=== PATIENT | female | born 1945 | race Caucasian/White ===

== ENCOUNTER 2022-07-28 14:15 | Outpatient (CLI) | payer MEDICARE, SELFPAY ==
[2022-07-28 14:33] LABS: Chloride* 102 mmol/L (96-114)
[2022-07-28 14:34] LABS: Albumin* 4.3 g/dL (3.3-5.0)
[2022-07-28 14:35] LABS: Potassium* 4.1 mmol/L (3.6-5.1); Sodium* 137 mmol/L (135-149)
[2022-07-28 14:37] LABS: Alkaline Phosphatase* 93 U/L (40-150); Aspartate Amino Transferase* 31 U/L (12-35); Bilirubin Total* 1.2 mg/dL (0.1-1.5); Blood Urea Nitrogen* 28 mg/dL (7-30); Carbon Dioxide* 21 mmol/L (20-32); Cholesterol* 140 mg/dL (90-199); Estimated Glomerular Filt Rate 58 ml/min; Total Protein* 7.8 g/dL (6.0-8.3)
[2022-07-28 14:38] LABS: Alanine Aminotransferase* 23 U/L (4-35); Calcium* 9.6 mg/dL (8.4-10.6); Glucose* 109 mg/dL (60-115); HDL Cholesterol* 37 mg/dL (>=50); LDL Cholesterol Calculated 81 mg/dL (<100); Triglycerides* 110 mg/dL (40-149)
== END 2022-07-28 14:16 | disposition home or self-care (01) ==
PROVIDERS: PCP Physician Assistant Medical; Visit Provider Physician Assistant Medical
DX: Z00.00 Encounter for general adult medical examination without abnormal findings (principal); I10 Essential (primary) hypertension; Z13.6 Encounter for screening for cardiovascular disorders; Z13.29 Encounter for screening for other suspected endocrine disorder
CPT/HCPCS: 80053; 80061; 84443

== ENCOUNTER 2023-06-24 14:09 | Outpatient (CLI) | payer MEDICARE, SELFPAY | END 2023-06-24 14:10 | disposition home or self-care (01) | PROVIDERS: PCP Physician Assistant Medical; Visit Provider Physician Assistant Medical | DX: Z00.00 Encounter for general adult medical examination without abnormal findings (principal); R79.89 Other specified abnormal findings of blood chemistry; E87.6 Hypokalemia; I10 Essential (primary) hypertension; E78.5 Hyperlipidemia, unspecified | CPT/HCPCS: 80053; 80061; 82043; 82570; 84443 ==

== ENCOUNTER 2023-07-27 14:39 | Outpatient (CLI) | payer MEDICARE, SELFPAY | END 2023-07-27 14:40 | disposition home or self-care (01) | LOC: NFLDREF 07-28 08:06 | PROVIDERS: PCP Physician Assistant Medical; Referring Provider Physician Assistant Medical; Visit Provider Emergency Medicine | DX: R30.0 Dysuria (principal); N39.0 Urinary tract infection, site not specified; N30.01 Acute cystitis with hematuria | CPT/HCPCS: 87086; 87186 ==

== ENCOUNTER 2024-01-17 16:33 | Outpatient (CLI) | payer MEDICARE, SELFPAY | END 2024-01-17 16:34 | disposition home or self-care (01) | LOC: NFLDREF 02-01 04:15 | PROVIDERS: PCP Physician Assistant Medical; Referring Provider Physician Assistant Medical; Visit Provider Physician Assistant Medical | DX: R35.0 Frequency of micturition (principal); N39.0 Urinary tract infection, site not specified | CPT/HCPCS: 87086 ==

== ENCOUNTER 2024-01-26 15:06 | Outpatient (CLI) | payer MEDICARE, SELFPAY | END 2024-01-26 15:07 | disposition home or self-care (01) | LOC: NFLDREF 02-09 08:41 | PROVIDERS: PCP Physician Assistant Medical; Referring Provider Physician Assistant Medical; Visit Provider Physician Assistant Medical | DX: N39.0 Urinary tract infection, site not specified (principal) | CPT/HCPCS: 87086 ==

== ENCOUNTER 2024-07-03 12:09 | Outpatient (CLI) | payer MEDICARE, SELFPAY | END 2024-07-03 12:10 | disposition home or self-care (01) | LOC: NFLDREF 07-06 12:15 | PROVIDERS: PCP Physician Assistant Medical; Referring Provider Physician Assistant Medical; Visit Provider Physician Assistant Medical | DX: E78.5 Hyperlipidemia, unspecified (principal); I10 Essential (primary) hypertension; R73.01 Impaired fasting glucose | CPT/HCPCS: 80053; 80061 ==

== ENCOUNTER 2025-08-03 15:29 | Outpatient (CLI) | payer MEDICARE, SELFPAY | END 2025-08-03 15:30 | disposition home or self-care (01) | PROVIDERS: PCP Physician Assistant Medical; Visit Provider Physician Assistant Medical | DX: R79.89 Other specified abnormal findings of blood chemistry (principal); I10 Essential (primary) hypertension; E78.5 Hyperlipidemia, unspecified | CPT/HCPCS: 80053; 84443 ==

== ENCOUNTER 2025-08-13 09:44 | Outpatient (CLI) | payer MEDICARE, SELFPAY | END 2025-08-13 09:45 | disposition home or self-care (01) | PROVIDERS: PCP Physician Assistant Medical; Referring Provider Physician Assistant Medical; Visit Provider Physician Assistant Medical | DX: D72.829 Elevated white blood cell count, unspecified (principal); N39.0 Urinary tract infection, site not specified | CPT/HCPCS: 87086 ==